=== PATIENT | male | born 1975 | race Caucasian/White ===

== ENCOUNTER 2017-02-13 12:01 | Emergency (ER) | payer OTHER ==
[~2017-02-13] VITALS: Wt 136.1 kg
[~2017-02-13 12:01] MED LIST: ALBUTEROL SULF0.5 M1 INH; AMOXICILLIN500 M2 PO; AUGMENTIN 875 M1 TAB PO; BACTRIM DS 8001 TA1 PO; BENTYL10 MG PO; CELEXA10 MG PO; CETIRIZINE HYDR10 MG PO; CIPRODEX 0.3%-7.5 ML OT; CLARITIN10 MG PO; FLONASE ALLERG9.9 ML NAS; HYDROCODONE BIT1 T11 PO; KEFLEX500 MG PO; LISINOPRIL10 M1 PO; MOTRIN800 MG PO; Motrin,Rufen800 MG PO; PREDNISONE10 MG PO; PROTONIX40 MG PO; ROBITUSSIN AC 110 ML PO; VICODIN 500 MG-1 TAB PO; WELLBUTRIN100 MG PO
[2017-02-13] MEDS ORDERED: PREDNISONE10 MG PO (12:35)
[2017-02-13] MEDS ORDERED: 'PARAFON FORTE500 M1 PO (12:35)
== END 2017-02-13 12:40 | disposition home or self-care (01) ==
LOC: ED 12:01
DX: M70.21 Olecranon bursitis, right elbow (principal); Y93.89 Activity, other specified

== ENCOUNTER → 2017-02-25 | Outpatient (CLI) | payer OTHER ==
[~2017-02-25] MED LIST changes: +'PARAFON FORTE500 M1 PO
== END | disposition home or self-care (01) ==
LOC: CT 08:44
DX: G44.329 Chronic post-traumatic headache, not intractable (principal); H50.40 Unspecified heterotropia

== ENCOUNTER 2017-05-03 08:20 | Emergency (ER) | payer OTHER ==
[~2017-05-03] VITALS: Ht 177.8 cm; Wt 136.1 kg
[2017-05-03] MEDS ORDERED: NAPROSYN500 MG PO (09:34)
== END 2017-05-03 11:24 | disposition home or self-care (01) ==
LOC: ED 08:20
DX: M25.551 Pain in right hip (principal)

== ENCOUNTER → 2017-05-18 | Outpatient (CLI) | payer OTHER ==
[~2017-05-18] MED LIST changes: +NAPROSYN500 MG PO
== END | disposition home or self-care (01) ==
LOC: MRI 14:49
DX: M51.26 Other intervertebral disc displacement, lumbar region (principal); G89.29 Other chronic pain

== ENCOUNTER 2017-10-11 09:04 | Emergency (ER) | payer OTHER ==
[~2017-10-11] VITALS: Ht 177.8 cm; Wt 136.1 kg
[2017-10-11] MEDS ORDERED: CYCLOBENZAPRINE10 MG PO (10:22)
[2017-10-11] MEDS ORDERED: NAPROSYN500 MG PO (10:22)
== END 2017-10-11 10:57 | disposition home or self-care (01) ==
LOC: ED 09:04
DX: S29.012A Strain of muscle and tendon of back wall of thorax, initial encounter (principal); R05 Cough; Z79.899 Other long term (current) drug therapy; X58.XXXA Exposure to other specified factors, initial encounter; Y93.89 Activity, other specified; Y92.89 Other specified places as the place of occurrence of the external cause; Y99.8 Other external cause status

== ENCOUNTER 2017-12-05 12:13 | Emergency (ER) | payer OTHER ==
[~2017-12-05] VITALS: Ht 177.8 cm; Wt 142.4 kg
[~2017-12-05 12:13] MED LIST changes: +CYCLOBENZAPRINE10 MG PO
[2017-12-05] MEDS ORDERED: CELEXA40 MG PO (12:58)
[2017-12-05 13:08] LABS: BILIRUBIN NEGATIVE (NEGATIVE); BLOOD NEGATIVE (NEGATIVE); CLARITY CLEAR (CLEAR); COLOR YELLOW (YELLOW); GLUCOSE NEGATIVE (NEGATIVE); KETONE TRACE (NEGATIVE); LEUKO ESTERASE NEGATIVE (NEGATIVE); NITRITE NEGATIVE (NEGATIVE); PH 5.5 (5.0-9.0); SPECIFIC GRAVITY >= 1.030 (1.005-1.030); UROBILINOGEN 0.2 E.U./dl (0.2-1.0)
[2017-12-05 13:26] LABS: EPITHELIAL CELLS 0-2; MUCOUS 1+; WBC 0-2 wbc/hpf (0-5)
[2017-12-05 14:33] LABS: BASO # 0.1 10*3/uL (0.0-0.1); BASO % 0.6 % (0.0-1.0); EOS # 0.3 10*3/uL (0.0-0.4); EOS % 3.2 % (1.0-4.0); HEMATOCRIT 44.9 % (42.0-52.0); HEMOGLOBIN 14.9 g/dl (14.0-18.0); LYMPH # 1.7 10*3/uL (1.3-4.4); LYMPH % 21.2 % (27.0-41.0); MEAN CELL VOLUME 84.2 fl (80.0-94.0); MEAN CORPUSCULAR HGB CONC 33.2 g/dl (33.0-37.0); MEAN PLATELET VOLUME 11.3 fl (9.6-12.3); MONO # 0.7 10*3/uL (0.1-1.0); MONO % 8.7 % (3.0-9.0); NEUT # 5.4 10*3/uL (2.3-7.9); NEUT % 66.1 % (47.0-73.0); PLATELET COUNT AUTOMATED 169 10*3/uL (130-400); RED BLOOD COUNT 5.33 10*6/uL (4.50-5.90); RED CELL DISTRI WIDTH 12.8 % (0-14.5); WHITE BLOOD COUNT 8.1 10*3/uL (4.8-10.8)
[2017-12-05 14:52] LABS: ALBUMIN 3.4 gm/dl (3.1-4.5); ALKALINE PHOSPHATASE 78 U/L (45-117); BUN 17 mg/dl (7-24); CHLORIDE 108 mmol/L (98-107); CREATININE 0.93 mg/dL (0.70-1.30); LIPASE 371 U/L (73-393); POTASSIUM 4.5 mmol/L (3.5-5.1); SGOT/AST 16 IU/L (3-35); SGPT/ALT 34 U/L (12-78); SODIUM 143 mmol/L (136-145)
== END 2017-12-05 16:32 | disposition home or self-care (01) ==
LOC: ED 12:13
PROVIDERS: Physician Assistant
DX: R10.32 Left lower quadrant pain (principal); Z98.890 Other specified postprocedural states; Z79.899 Other long term (current) drug therapy

== ENCOUNTER 2019-05-13 13:33 | Emergency (ER) | payer OTHER ==
[~2019-05-13] VITALS: Ht 177.8 cm; Wt 140.6 kg
[~2019-05-13 13:33] MED LIST changes: +ABILIFY5 MG PO; +CELEXA40 MG PO
[2019-05-13] MEDS ORDERED: DELTASONE20 M1 PO (15:34)
[2019-05-13] MEDS ORDERED: ZYRTEC10 MG PO (15:34)
[2019-05-13] MEDS ORDERED: ZITHROMAX250 MG PO (15:34)
== END 2019-05-13 15:46 | disposition home or self-care (01) ==
LOC: ED 13:33
DX: J40 Bronchitis, not specified as acute or chronic (principal); Z79.899 Other long term (current) drug therapy

== ENCOUNTER 2019-08-05 08:34 | Emergency (ER) | payer OTHER, MEDICARE ==
[~2019-08-05] VITALS: Ht 177.8 cm; Wt 136.1 kg
[~2019-08-05 08:34] MED LIST changes: +DELTASONE20 M1 PO; +ZITHROMAX250 MG PO; +ZYRTEC10 MG PO
[2019-08-05] MEDS ORDERED: PREVACID30 M2 PO (08:50)
== END 2019-08-05 09:10 | disposition home or self-care (01) ==
LOC: ED 08:34
DX: K29.70 Gastritis, unspecified, without bleeding (principal); K42.9 Umbilical hernia without obstruction or gangrene

== ENCOUNTER 2019-11-04 10:56 | Emergency (ER) | payer OTHER, MEDICARE ==
[~2019-11-04] VITALS: Ht 177.8 cm; Wt 145.1 kg
[~2019-11-04 10:56] MED LIST changes: +PREVACID30 M2 PO
[2019-11-04 11:19] LABS: BASO # 0.1 10*3/uL (0.0-0.1); BASO % 0.8 % (0.0-1.0); EOS # 0.3 10*3/uL (0.0-0.4); EOS % 3.8 % (1.0-4.0); HEMOGLOBIN 15.1 g/dl (14.0-18.0); LYMPH # 1.6 10*3/uL (1.3-4.4); LYMPH % 23.9 % (27.0-41.0); MEAN CELL VOLUME 85.5 fl (80.0-94.0); MEAN CORPUSCULAR HGB 28.1 pg (27.0-31.0); MEAN CORPUSCULAR HGB CONC 32.8 g/dl (33.0-37.0); MEAN PLATELET VOLUME 10.8 fl (9.6-12.3); MONO # 0.4 10*3/uL (0.1-1.0); MONO % 6.4 % (3.0-9.0); NEUT # 4.2 10*3/uL (2.3-7.9); NEUT % 64.6 % (47.0-73.0); PLATELET COUNT AUTOMATED 200 10*3/uL (130-400); RED BLOOD COUNT 5.38 10*6/uL (4.50-5.90); RED CELL DISTRI WIDTH 12.5 % (0-14.5); WHITE BLOOD COUNT 6.5 10*3/uL (4.8-10.8)
[2019-11-04 11:31] LABS: ACT PARTIAL THROMBO TIME 27.9 SECONDS (20.0-32.1); INTERNATIONAL NORM RATIO 0.9 (2.0-3.5)
[2019-11-04 11:38] LABS: ALBUMIN 3.2 gm/dl (3.1-4.5); ALKALINE PHOSPHATASE 88 U/L (45-117); BUN 14 mg/dl (7-24); CHLORIDE 111 mmol/L (98-107); CREATININE 0.97 mg/dL (0.70-1.30); SGOT/AST 15 IU/L (3-35); SGPT/ALT 29 U/L (12-78); SODIUM 144 mmol/L (136-145); TOTAL PROTEIN 7.1 gm/dL (6.4-8.2)
[2019-11-04 11:44] LABS: TROPONIN I < 0.015 ng/ml (<0.045)
== END 2019-11-04 15:26 | disposition home or self-care (01) ==
LOC: ED 10:56
PROVIDERS: Emergency Medicine
DX: R07.9 Chest pain, unspecified (principal); M79.641 Pain in right hand; M79.642 Pain in left hand; Z79.899 Other long term (current) drug therapy; Z79.2 Long term (current) use of antibiotics

== ENCOUNTER 2020-02-27 11:45 | Emergency (ER) | payer OTHER ==
[~2020-02-27] VITALS: Ht 177.8 cm; Wt 145.1 kg
== END 2020-02-27 13:00 | disposition home or self-care (01) ==
LOC: ED 11:45
DX: K42.9 Umbilical hernia without obstruction or gangrene (principal); I10 Essential (primary) hypertension; Z79.899 Other long term (current) drug therapy; Z79.2 Long term (current) use of antibiotics

== ENCOUNTER 2020-08-07 08:48 | Emergency (ER) | payer OTHER ==
[~2020-08-07] VITALS: Ht 177.8 cm; Wt 147.4 kg
[2020-08-07] MEDS ORDERED: PROVENTIL HFA6.7 GM INH (09:21)
[2020-08-07] MEDS ORDERED: CIPRO500 MG PO (09:21)
[2020-08-07] MEDS ORDERED: PREDNISONE20 M1 PO (09:21)
== END 2020-08-07 10:57 | disposition home or self-care (01) ==
LOC: ED 08:48
DX: S91.331A Puncture wound without foreign body, right foot, initial encounter (principal); J40 Bronchitis, not specified as acute or chronic; Z79.899 Other long term (current) drug therapy; W45.0XXA Nail entering through skin, initial encounter; Y93.89 Activity, other specified; Y92.89 Other specified places as the place of occurrence of the external cause; Y99.8 Other external cause status

== ENCOUNTER → 2022-01-17 | Outpatient (CLI) | payer OTHER ==
[~2022-01-17] MED LIST changes: +CIPRO500 MG PO; +PREDNISONE20 M1 PO; +PROVENTIL HFA6.7 GM INH
[2022-01-17 16:50] LABS: BASO # 0.1 10*3/uL (0.0-0.1); BASO % 0.7 % (0.0-1.0); EOS # 0.3 10*3/uL (0.0-0.4); EOS % 3.1 % (1.0-4.0); HEMATOCRIT 50.3 % (42.0-52.0); LYMPH # 1.9 10*3/uL (1.3-4.4); MEAN CELL VOLUME 84.5 fl (80.0-94.0); MEAN CORPUSCULAR HGB 28.1 pg (27.0-31.0); MEAN CORPUSCULAR HGB CONC 33.2 g/dl (33.0-37.0); MEAN PLATELET VOLUME 11.5 fl (9.6-12.3); MONO # 0.9 10*3/uL (0.1-1.0); MONO % 10.6 % (3.0-9.0); NEUT # 5.2 10*3/uL (2.3-7.9); NEUT % 62.4 % (47.0-73.0); PLATELET COUNT AUTOMATED 210 10*3/uL (130-400); RED BLOOD COUNT 5.95 10*6/uL (4.50-5.90); RED CELL DISTRI WIDTH 12.4 % (0-14.5); WHITE BLOOD COUNT 8.4 10*3/uL (4.8-10.8)
[2022-01-17 17:16] LABS: ALKALINE PHOSPHATASE 96 U/L (45-117); BUN 11 mg/dl (7-24); CHLORIDE 105 mmol/L (98-107); CHOLESTEROL 173 mg/dL (<200); CREATININE 0.94 mg/dL (0.70-1.30); LDL CHOLESTEROL 76 mg/dL (9-159); POTASSIUM 4.3 mmol/L (3.5-5.1); SGOT/AST 20 IU/L (3-35); SGPT/ALT 31 U/L (12-78); SODIUM 138 mmol/L (136-145); T3 UPTAKE 31 % (31-39); THYROXINE (T4) TOTAL 7.9 ug/dl (4.5-12.1); TRIGLYCERIDES 300 mg/dl (<150)
[2022-01-17 17:28] LABS: VITAMIN D, 25-HYDROXY 15.2 ng/mL (30-100)
== END | disposition home or self-care (01) ==
LOC: LAB 16:18
PROVIDERS: ATTEND Internal Medicine
DX: Z13.220 Encounter for screening for lipoid disorders (principal); Z13.1 Encounter for screening for diabetes mellitus; Z13.21 Encounter for screening for nutritional disorder; Z00.00 Encounter for general adult medical examination without abnormal findings

== ENCOUNTER 2022-04-04 13:25 | Emergency (ER) | payer OTHER ==
[~2022-04-04] VITALS: Wt 152.0 kg
[2022-04-04 14:04] LABS: BASO % 0.4 % (0.0-1.0); EOS # 0.2 10*3/uL (0.0-0.4); HEMATOCRIT 43.1 % (42.0-52.0); LYMPH # 1.7 10*3/uL (1.3-4.4); LYMPH % 24.5 % (27.0-41.0); MEAN CORPUSCULAR HGB 28.5 pg (27.0-31.0); MEAN CORPUSCULAR HGB CONC 33.9 g/dl (33.0-37.0); MEAN PLATELET VOLUME 11.4 fl (9.6-12.3); MONO # 0.7 10*3/uL (0.1-1.0); MONO % 9.7 % (3.0-9.0); NEUT # 4.3 10*3/uL (2.3-7.9); NEUT % 61.3 % (47.0-73.0); PLATELET COUNT AUTOMATED 174 10*3/uL (130-400); RED BLOOD COUNT 5.13 10*6/uL (4.50-5.90); RED CELL DISTRI WIDTH 12.4 % (0-14.5)
[2022-04-04 14:20] LABS: ALKALINE PHOSPHATASE 84 U/L (45-117); BUN 12 mg/dl (7-24); CHLORIDE 110 mmol/L (98-107); CREATININE 0.94 mg/dL (0.70-1.30); LIPASE 218 U/L (73-393); POTASSIUM 3.8 mmol/L (3.5-5.1); SGOT/AST 10 IU/L (3-35); SGPT/ALT 26 U/L (12-78); SODIUM 141 mmol/L (136-145); TOTAL PROTEIN 6.8 gm/dL (6.4-8.2)
[2022-04-04] MEDS ORDERED: ZITHROMAX250 MG PO (17:09)
== END 2022-04-04 17:23 | disposition home or self-care (01) ==
LOC: ED 13:25
PROVIDERS: Physician Assistant
DX: J18.9 Pneumonia, unspecified organism (principal); R10.11 Right upper quadrant pain; R11.10 Vomiting, unspecified; Z79.899 Other long term (current) drug therapy; Z79.2 Long term (current) use of antibiotics

== ENCOUNTER 2022-11-07 16:56 | Emergency (ER) | payer OTHER ==
[~2022-11-07] VITALS: Wt 154.2 kg
[2022-11-07 17:48] LABS: BASO # 0.1 10*3/uL (0.0-0.1); BASO % 1.1 % (0.0-1.0); EOS # 0.2 10*3/uL (0.0-0.4); EOS % 3.5 % (1.0-4.0); HEMATOCRIT 42.7 % (42.0-52.0); LYMPH # 1.5 10*3/uL (1.3-4.4); LYMPH % 23.2 % (27.0-41.0); MEAN CELL VOLUME 86.3 fl (80.0-94.0); MEAN CORPUSCULAR HGB 28.7 pg (27.0-31.0); MEAN CORPUSCULAR HGB CONC 33.3 g/dl (33.0-37.0); MEAN PLATELET VOLUME 11.4 fl (9.6-12.3); MONO # 0.6 10*3/uL (0.1-1.0); MONO % 9.8 % (3.0-9.0); NEUT # 3.9 10*3/uL (2.3-7.9); NEUT % 62.1 % (47.0-73.0); PLATELET COUNT AUTOMATED 161 10*3/uL (130-400); RED BLOOD COUNT 4.95 10*6/uL (4.50-5.90); RED CELL DISTRI WIDTH 12.8 % (0-14.5); WHITE BLOOD COUNT 6.3 10*3/uL (4.8-10.8)
[2022-11-07 18:04] LABS: ALKALINE PHOSPHATASE 81 U/L (46-116); BUN 12 mg/dl (9-23); CHLORIDE 106 mmol/L (98-107); POTASSIUM 3.6 mmol/L (3.4-5.1); SGPT/ALT 18 U/L (10-49); TOTAL PROTEIN 6.3 gm/dL (6.0-8.0)
[2022-11-07] MEDS ORDERED: ZITHROMAX250 MG PO (18:47)
[2022-11-07] MEDS ORDERED: PREDNISONE50 MG PO (18:47)
[2022-11-07] MEDS ORDERED: PROVENTIL HFA6.7 GM INH (18:47)
== END 2022-11-07 18:45 | disposition home or self-care (01) ==
LOC: ED 16:56
PROVIDERS: Internal Medicine
DX: I49.9 Cardiac arrhythmia, unspecified (principal); Z98.890 Other specified postprocedural states

== ENCOUNTER 2022-12-19 00:19 | Emergency (ER) | payer OTHER ==
[~2022-12-19] VITALS: Ht 177.8 cm; Wt 154.2 kg
[~2022-12-19 00:19] MED LIST changes: +PREDNISONE50 MG PO
[2022-12-19 02:08] LABS: BUN 14 mg/dl (9-23); CHLORIDE 107 mmol/L (98-107); POTASSIUM 4.1 mmol/L (3.4-5.1)
[2022-12-19] MEDS ORDERED: INDOMETHACIN50 MG PO (02:35)
== END 2022-12-19 02:40 | disposition home or self-care (01) ==
LOC: ED 00:19
PROVIDERS: Emergency Medicine
DX: M10.072 Idiopathic gout, left ankle and foot (principal); Z98.890 Other specified postprocedural states

== ENCOUNTER 2023-06-11 17:14 | Emergency (ER) | payer OTHER ==
[~2023-06-11] VITALS: Ht 177.8 cm; Wt 149.7 kg
[~2023-06-11 17:14] MED LIST changes: +INDOMETHACIN50 MG PO
== END 2023-06-11 18:48 | disposition home or self-care (01) ==
LOC: ED 17:14
DX: M54.2 Cervicalgia (principal); M25.519 Pain in unspecified shoulder; I10 Essential (primary) hypertension; F41.9 Anxiety disorder, unspecified; F32.A Depression, unspecified; Z98.890 Other specified postprocedural states; V49.9XXA Car occupant (driver) (passenger) injured in unspecified traffic accident, initial encounter; Y93.89 Activity, other specified; Y92.410 Unspecified street and highway as the place of occurrence of the external cause; Y99.8 Other external cause status

== ENCOUNTER 2023-09-23 07:17 | Emergency (ER) | payer OTHER ==
[~2023-09-23] VITALS: Wt 154.2 kg
[2023-09-23 08:22] LABS: BASO % 0.3 % (0.0-1.0); EOS # 0.2 10*3/uL (0.0-0.4); EOS % 2.9 % (1.0-4.0); HEMATOCRIT 46.1 % (42.0-52.0); LYMPH # 0.9 10*3/uL (1.3-4.4); LYMPH % 13.7 % (27.0-41.0); MEAN CELL VOLUME 87.5 fl (80.0-94.0); MEAN CORPUSCULAR HGB 29.4 pg (27.0-31.0); MEAN CORPUSCULAR HGB CONC 33.6 g/dl (33.0-37.0); MEAN PLATELET VOLUME 10.7 fl (9.6-12.3); MONO # 0.8 10*3/uL (0.1-1.0); MONO % 11.6 % (3.0-9.0); NEUT # 4.9 10*3/uL (2.3-7.9); NEUT % 71.2 % (47.0-73.0); PLATELET COUNT AUTOMATED 170 10*3/uL (130-400); RED BLOOD COUNT 5.27 10*6/uL (4.50-5.90); RED CELL DISTRI WIDTH 13.2 % (0-14.5); WHITE BLOOD COUNT 6.8 10*3/uL (4.8-10.8)
[2023-09-23 08:43] LABS: ALKALINE PHOSPHATASE 78 U/L (46-116); BUN 9 mg/dl (9-23); CHLORIDE 106 mmol/L (98-107); LIPASE 34 U/L (12-53); POTASSIUM 4.1 mmol/L (3.4-5.1); SGPT/ALT 26 U/L (5-49); TOTAL PROTEIN 7.4 gm/dL (6.0-8.0)
[2023-09-23] MEDS ORDERED: ONDANSETRON4 MG SL (11:08)
== END 2023-09-23 11:12 | disposition home or self-care (01) ==
LOC: ED 07:17
PROVIDERS: Emergency Medicine
DX: B34.9 Viral infection, unspecified (principal); R11.0 Nausea; I10 Essential (primary) hypertension; F41.9 Anxiety disorder, unspecified; F32.A Depression, unspecified; Z98.890 Other specified postprocedural states; Z20.822 Contact with and (suspected) exposure to COVID-19

== ENCOUNTER 2024-08-11 14:28 | Emergency (ER) | payer OTHER ==
[~2024-08-11] VITALS: Ht 177.8 cm; Wt 143.4 kg
[~2024-08-11 14:28] MED LIST changes: +ONDANSETRON4 MG SL
[2024-08-11] MEDS ORDERED: Ketorolac Tromethamine 30 MG/ML VIAL IM ONE (14:45)
[2024-08-11] MEDS ORDERED: methylPREDNISolone acetate 40 MG/ML VIAL IM ONE (14:50)
[2024-08-11] MEDS ORDERED: OXYCODONE-ACET1 EACH PO (16:46)
[2024-08-11] MEDS ORDERED: MEDROL DOSEPAK4 MG PO (16:48)
[2024-08-11] MEDS ORDERED: IBU800 M1 PO (16:48)
== END 2024-08-11 17:03 | disposition home or self-care (01) ==
LOC: ED 14:28
DX: S32.018A Other fracture of first lumbar vertebra, initial encounter for closed fracture (principal); S22.078A Other fracture of T9-T10 vertebra, initial encounter for closed fracture; S22.088A Other fracture of T11-T12 vertebra, initial encounter for closed fracture; S22.058A Other fracture of T5-T6 vertebra, initial encounter for closed fracture; I10 Essential (primary) hypertension; F41.9 Anxiety disorder, unspecified; F32.A Depression, unspecified; Z98.890 Other specified postprocedural states; W22.8XXA Striking against or struck by other objects, initial encounter; Y93.89 Activity, other specified; Y92.89 Other specified places as the place of occurrence of the external cause; Y99.0 Civilian activity done for income or pay

== ENCOUNTER 2025-03-31 02:55 | Emergency (ER) | payer OTHER ==
[~2025-03-31] VITALS: Ht 177.8 cm; Wt 120.2 kg
[~2025-03-31 02:55] MED LIST changes: +IBU800 M1 PO; +MEDROL DOSEPAK4 MG PO; +OXYCODONE-ACET1 EACH PO
[2025-03-31] MEDS ORDERED: ALBUTEROL 8 GM INHALER INH ONE (03:25)
[2025-03-31] MEDS ORDERED: AZITHROMYCIN 250 MG TAB PO ONE (04:10)
[2025-03-31] MEDS ORDERED: Codeine Phosphate/Guaifenesi 10 ML UDC PO ONE (04:10)
[2025-03-31] MEDS ORDERED: ZITHROMAX250 MG PO (04:11)
[2025-03-31] MEDS ORDERED: GUAIFEN-CODEINE10 ML PO (04:11)
== END 2025-03-31 04:21 | disposition home or self-care (01) ==
LOC: ED 02:55
DX: J18.9 Pneumonia, unspecified organism (principal); Z20.822 Contact with and (suspected) exposure to COVID-19; I10 Essential (primary) hypertension; F41.9 Anxiety disorder, unspecified; F32.A Depression, unspecified; Z98.890 Other specified postprocedural states